=== PATIENT | female | born 1955 | race African-American/Black ===

== ENCOUNTER 2025-01-16 11:48 | Emergency (ER) | payer MEDICARE, MEDICAID ==
[~2025-01-16] VITALS: Ht 149.9 cm; Wt 90.0 kg
[2025-01-16 12:04] VITALS: BP 145/74; PULSE 94; RESP 18; TEMP 98.8; O2SAT 99
[2025-01-16 12:47] LABS: APPEARANCE,URINE HAZY (CLEAR); GLUCOSE, URINE (UA) NEGATIVE (NEGATIVE); LEUKOCYTE ESTERASE ,URINE SMALL (NEGATIVE); NITRATE,URINE POSITIVE (NEGATIVE); OCCULT BLOOD,URINE SMALL (NEGATIVE); SPECIFIC GRAVITIY, URINE 1.020 (1.003-1.030)
[2025-01-16 13:01] LABS: SQUAMOUS EPITHELIAL CELL,UR Many /LPF (None Seen)
== END 2025-01-16 13:30 | disposition left against medical advice (07) ==
LOC: EMS 11:48
DX: N39.0 Urinary tract infection, site not specified (principal); R30.0 Dysuria; I10 Essential (primary) hypertension
CPT/HCPCS: 51702; 51798; 81001; 87077; 87086; 87186; 99284; Z7502